=== PATIENT | female | born 1955 | race Caucasian/White ===

== ENCOUNTER 2024-06-16 17:30 | Outpatient (RCR) | payer SELFPAY | END 2024-06-19 23:59 | LOC: NS 17:30 | DX: Z71.3 Dietary counseling and surveillance (principal) ==

== ENCOUNTER 2025-06-24 16:18 | Emergency (ER) | payer MEDICARE, OTHER, SELFPAY ==
[2025-06-24 16:19] VITALS: BP 147/89; PULSE 78; RESP 16; TEMP 36.1; O2SAT 100; BMI 23.9
--- NOTE | 2025-06-24 16:38 | CT_ITS ---
PROCEDURE: CT/Brain/Head without Contrast
--- NOTE | 2025-06-24 16:39 | EX.ED.GENINJ ---
HPI History of Present Illness Chief Complaint: Head Injury Detail of Chief Complaint: Patient tripped playing pickle ball. She states her left shoulder hit firs Informant: patient and family Onset/Context/Timing Onset: Today and Hours Mechanism/Context: Blunt Injury Location: Left brow Current Severity: Gone Maximum Severity: Moderate Worsened by: Initial impact Relieved by: Not applicable Associated Symptoms Associated Symptoms: Negative for Parasthesias, Weakness, Loss of function, Inability to ambulate, Loss of consciousness or Amnesia Narrative Narrative: Patient is a 69-year-old woman. She was playing pickle ball. She was running to strike the ball. She tripped over her feet. She states she fell forward. She did not break her fall. She states her left shoulder hit the asphalt first followed by her head. She does have abrasions to her right and left knee. She denies headache, nausea, vomiting or diarrhea. She denies double vision, blurred vision or loss of vision. Eyes ringers decreased hearing. She denies neck pain. She denies paresthesia, anesthesia or weakness of her upper or lower extremity. She denies any problems with balance or coordination after the fall. Tetanus is unknown. She is not on antithrombotic or anticoagulant. She states she is on no medication. Tetanus Immunization: Unknown Prior similar symptoms: No Recent Illness/Hospitalization: No PFSH PFSH Medical History no medical history no medical history Home Medications ?Medication ?Instructions ?Recorded ?Last Taken ?Type hydrocodone-acetaminophen 5-325mg 1 - 2 tab PO Q4H PRN PRN Pain ##20 10/09/13 Unknown Rx 5mg-325mg Allergy/AdvReac Type Severity Reaction Status Date / Time meperidine HCl (From Demerol) AdvReac Vomiting Verified 06/24/25 16:19 Social History Smoking Status: Never smoker ROS ROS ED Constitutional Constitutional ED: Denies chills, fever(s) or subjective Eyes Eyes: Denies blurry vision or change in vision ENT ENT ED: Denies ear pain, rhinorrhea or sore throat Cardiovascular Cardiovascular: Denies chest pain Respiratory/Chest Respiratory/Chest: Denies dyspnea Gastrointestinal Gastrointestinal: Denies abdominal pain, nausea or vomiting Genitourinary Genitourinary ED: Denies dysuria, hematuria or urinary frequency Musculoskeletal Musculoskeletal: Denies arthralgias, back pain, myalgias or neck pain Integumentary Reports other Details: Laceration involving the lateral portion of the left brow Neurologic Neurologic: Denies headache(s), paresthesias or weakness Psychiatric Psychiatric: Denies anxiety or depression Endocrine Endocrinology: Denies cold intolerance or heat intolerance Hematologic/Lymphatic Hematologic/Lymphatic: Denies easy bleeding or easy bruising EXAM Physical Exam Const Vital Signs: 06/24/25 16:19 06/24/25 16:33 Temperature 97 F L Temperature Source Temporal Pulse Rate 78 Respiratory Rate 16 Respiratory Effort Normal Non-Labored Respiratory Depth Normal Respiratory Pattern Normal Blood Pressure 147/89 H Blood Pressure Mean 108 Pulse Ox 100 Oxygen Delivery Method Room Air Room Air Positive well nourished and well developed General Appearance ED: well developed and NAD HEENT Reports TM's clear trauma and tenderness Nose: Negative for septum abnormal Tympanic Membrane ED: Yes TM's clear Eyes PERRL and EOMs intact bilaterally General Eye ED: Yes other Other Details: There is no subconjunctival hemorrhage. There is no nystagmus. Neck full ROM Neck Narrative: There is no midline tenderness. Chest Wall inspection of chest normal and palpation of chest normal Resp normal respiratory effort and clear to auscultation bilaterally Cardio regular rhythm, S1 normal heart sound, S2 normal heart sound and no murmurs Rate: regular rate Extremity normal to inspection and full ROM Neuro oriented x3, CN's II-XII intact bilaterally, moves all extremities, no focal motor deficits and no sensory deficits noted Neuro Narrative: There is no dysmetria. Bicep, brachialis, tricep, patella and ankle reflex are 2+ and symmetric. There is no clonus at the ankles. Negative Babinski sign bilaterally. Haresh Coma Scale: document GCS findings Spontaneous Obeys Commands Oriented 15 Sensorium / Orientation: alert Motor Exam: strength 5/5 throughout Deep Tendon Reflexes: Rt Triceps (C7): 2+, Lt Triceps (C7): 2+, Rt Biceps (C5, C6): 2+, Lt Biceps (C5, C6): 2+, Rt Brachioradialis (C6): 2+, Lt Brachioradialis (C6): 2+, Rt Patellar (L4): 2+, Lt Patellar (L4): 2+, Rt Ankle (S1): 2+ and Lt Ankle (S1): 2+ Deep Tendon Reflexes Back: Rt Patellar (L4): 2+, Lt Patellar (L4): 2+, Rt Ankle (S1): 2+ and Lt Ankle (S1): 2+ Plantar Reflex: Downgoing: bilateral Psych mental status grossly normal and thought process normal Skin no rashes or lesions noted, skin turgor normal and no jaundice Skin Narrative: Laceration lateral aspect of the left brow. PROC Procedures Other Procedures Procedure(s): Laceration involving the lateral aspect of the left brow. Length is 2.2 cm. It is jagged and gaping. Patient was prepped draped sterile manner. The wound anesthetized for local metrician 1% lidocaine without epinephrine. The wound was cleansed. Using 6-0 Ethilon a total of 6 simple interrupted sutures was placed. Patient had good cosmesis hemostasis. MDM MDM MDM Narrative Medical decision making narrative: Per the [place] CT head rule recommendations consider CT. Per the [facility] head CT instrument recommendation is CAT scan. Therefore we will obtain a CAT scan patient does have a laceration involving the left brow that will require suturing. Radiography Diagnostic Testing: Clinical Impression(s) from Imaging Studies Brain CT 06/24/25 16:38 IMPRESSION: No acute intracranial abnormality. Reading Location: [facility] CT of the head was reviewed by me. There is no evidence of intracranial bleed or fracture. Radiologist read the CT as negative. Discharge Plan Triage Chief Complaint: Head Injury ED Provider: Taye Fleming Dx/Rx/DC Orders Clinical Impression: CHI (closed head injury), Face lacerations, Injury due to fall, Elevated blood pressure reading without diagnosis of hypertension Instructions: ED Head Injury (Adult), ED Laceration, All Closures, ED Laceration Minimize Scars Prescriptions: No Action hydrocodone-acetaminophen 1 TABLET tablet 1 - 2 tab PO Q4H PRN PRN (Reason: Pain) Qty: 20 0RF Primary Care Provider: Garcia Rooney Referrals: Garcia Rooney DO [Primary Care Provider, Medical] - 5 Days for suture removal Print Language: Serbian Disposition Disposition: Home, Self Care
[2025-06-24] MEDS: Lidocaine 1% (20 ml mdv) 20 ML Vial INFILT (17:02)
[2025-06-24 17:58] VITALS: BP 127/70; PULSE 78; RESP 16; TEMP 36.1; O2SAT 100
--- NOTE | 2025-06-24 18:06 | ED.RN ---
pt to triage after after leaving department. pt head lac swollen more significantly and bleeding. Dr. Fleming notified, instructed to lay pt down with cold compress to reduce swelling and bleeding. A. Self RN notified that pt was placed back into same room.
== END 2025-06-24 19:52 | disposition home or self-care (01) ==
PROVIDERS: Emergency Provider Emergency Medicine; PCP Student in an Organized Health Care Education/Training Program; Visit Provider Emergency Medicine
DX: S01.81XA Laceration without foreign body of other part of head, initial encounter (principal); W01.0XXA Fall on same level from slipping, tripping and stumbling without subsequent striking against object, initial encounter; S80.211A Abrasion, right knee, initial encounter; S80.212A Abrasion, left knee, initial encounter; W01.198A Fall on same level from slipping, tripping and stumbling with subsequent striking against other object, initial encounter; Y93.73 Activity, racquet and hand sports; R03.0 Elevated blood-pressure reading, without diagnosis of hypertension; Z23 Encounter for immunization
CPT/HCPCS: 12011; 70450; 90471; 90715; 99283